=== PATIENT | female | born 1970 | race Caucasian/White ===

== ENCOUNTER 2018-08-27 23:49 | Emergency (ER) | payer SELFPAY ==
[~2018-08-27] VITALS: Ht 157.5 cm; Wt 61.3 kg
[2018-08-28 00:07] VITALS: BP 134/98
== END 2018-08-28 00:09 ==
LOC: ER 23:50
DX: S00.83XA Contusion of other part of head, initial encounter (principal); Z88.1 Allergy status to other antibiotic agents; Z88.2 Allergy status to sulfonamides; V49.88XA Car occupant (driver) (passenger) injured in other specified transport accidents, initial encounter; Y93.89 Activity, other specified; Y92.413 State road as the place of occurrence of the external cause; Y99.9 Unspecified external cause status
CPT/HCPCS: 99283